=== PATIENT | female | born 1995 | race Caucasian/White ===

== ENCOUNTER 2017-12-20 15:36 | Emergency (ER) | payer OTHER ==
[~2017-12-20] VITALS: Ht 162.6 cm; Wt 53.1 kg
[~2017-12-20 15:36] MED LIST: FLNCV PO
[2017-12-20 15:38] VITALS: TEMP 36.6; Ht 162.6 cm; Wt 53.1 kg
--- NOTE | 2017-12-20 16:05 | DIAGNOSTIC IMAGING REPORT ---
L WRIST W/NAVICULAR MIN 3 VIEWS CLINICAL HISTORY: Left wrist pain extending into the forearm. COMPARISON: None. FINDINGS: Alignment of the left wrist is anatomic. No acute fracture is identified. Joint spaces are clear. No erosions are identified. IMPRESSION: No acute fracture or dislocation within the left wrist. Electronically signed by: Kevan Muller M.D. 12/20/2017 4:04 PM Dictated Date/Time: 12/20/2017 4:03 PM
--- NOTE | 2017-12-20 16:41 | DIAGNOSTIC IMAGING REPORT ---
L ELBOW MIN 3 VIEWS ROUTINE CLINICAL HISTORY: fall into door frame; wrist forearm and elbow pain COMPARISON: None FINDINGS: Alignment of the left elbow is anatomic. There is no fracture or joint effusion. No osseous lesion is identified. IMPRESSION: No acute fracture or joint effusion of the left elbow. Electronically signed by: Kevan Muller M.D. 12/20/2017 4:40 PM Dictated Date/Time: 12/20/2017 4:39 PM
[2017-12-20 17:15] VITALS: BP 113/72; PULSE 99; O2SAT 100
--- NOTE | 2017-12-22 06:07 | EMERGENCY ROOM VISIT NOTE ---
ED Visit Note First contact with patient: 15:54 Chief Complaint: I hurt my left arm. History of Present Illness: Ms. Torres is a 22-year-old white female who ambulates into the accompanied by a female friend complaining of left lower arm pain. Patient reports yesterday she tripped while wearing flip-flops and struck her left forearm on a door frame. Since that time she reports that she is having pain over the left forearm that extends into the wrist and elbow. She describes her pain as sharp and shooting. At rest she rates her discomfort 2/ 10 with any movements of the wrist, elbow and forearm her pain escalates to 8/ 10. She denies true radiation of pain. As previously noted all movements of the wrist, forearm and elbow increases her discomfort, palpation increases her discomfort. She has not identified any alleviating factors related to the pain. She reports she has been using [id number] ibuprofen without relief of her discomfort. Associated with her pain she reports she has a mild tingling sensations in the little and ring fingers. She denies any previous significant injuries to the forearm, wrist or elbow or surgeries. Review of Systems: As noted above in history of present illness. Past Medical History: Patient denies. Current Medications: Patient denies. Allergies to Medications: Penicillin. Social History: Patient is currently employed; she feels safe in her home environment; she admits to tobacco use and denies alcohol use. Physical Examination: Vital Signs: Date Time Temp Pulse Resp B/P (MAP) Pulse Ox O2 Delivery O2 Flow Rate FiO2 12/20/17 17:15 99 18 113/72 100 12/20/17 15:38 36.6 118 18 131/86 99 Room Air GENERAL: 22-year-old female in mild to moderate distress due to pain, nontoxic- appearing, afebrile and hemodynamically stable. NEUROLOGICAL: Awake, alert and oriented to person, place and time. Answering questions appropriately and following commands. SKIN: Warm, dry and pink. No open soft tissue trauma noted. LEFT UPPER EXTREMITY: No gross bony deformities. No tenderness throughout the shoulder or humerus. Moderate tenderness over the proximal radius and ulna at the level of the elbow. Minimal tenderness over the olecranon process. In this area do not appreciate any bony deformity or crepitus. There is moderate tenderness over the middle aspect of the medial and posterior forearm. There is a large contusion in this area. There is questionable deformity of the ulna but no appreciable crepitus. Additionally there is tenderness diffusely throughout the carpals. I do not appreciate any bony deformity or crepitus. No specific tenderness in the anatomical snuffbox. No tenderness throughout the hands or fingers. She refuses to do all range of motion in the elbow, forearm and wrist due to pain. Throughout the hand the skin was warm and pink and capillary refill was brisk. She was able to distinguish light sensations to all dermatomes of the hand. ED Course: Patient is assessed as noted above. Patient's medication list was reviewed. Patient was offered pain medication and refused and was given ice pack for pain and comfort. Left Elbow X-Rays: Were read by myself and the radiologist no acute fractures or dislocations. No joint effusions. No elevation of the fat pads. Left Wrist with Navicular X-Rays: Should be noted this x-ray had slight extension into the middle aspect of the forearm which overlapped the elbow x- ray. Was read by myself and the radiologist showing no acute fractures or dislocations. Patient was placed in a wrist lacer splint and sling. Patient was educated about today's findings and instructed on her treatment plan ; she verbalized understanding and agreement with this plan. Clinical Impression: Left forearm contusion. Disposition: Patient discharged to home in stable condition accompanied by her mother; prior to departure she was reassessed and subjectively reported she was feeling slightly worse and rated her discomfort 5/10. Plan: Patient was encouraged to alternate ibuprofen and acetaminophen every 3 hours as needed for pain, use ice for pain and swelling and use splint and sling until pain-free. Patient was signed off of work for 3 days. Patient was encouraged to follow-up with her PCP for recheck in 4-5 days if no better for possible referral to orthopedics. Patient was encouraged return the ED for worsening/uncontrolled pain, uncontrolled swelling, worsening numbness/tingling of the hand or any new/ concerning symptoms.
== END 2017-12-20 17:00 | disposition home or self-care (01) ==
LOC: C.EDB 15:37 → C.EDD 17:00
DX: S50.12XA Contusion of left forearm, initial encounter (principal); W18.40XA Slipping, tripping and stumbling without falling, unspecified, initial encounter; Z88.0 Allergy status to penicillin; Z72.0 Tobacco use

== ENCOUNTER 2025-01-27 13:25 | Inpatient (IN) ==
[2025-01-27] MEDS ORDERED: LIDOCAINE 1% LOCAL 20 ML VIAL INFIL PRN (14:24)
[2025-01-27] MEDS ORDERED: OXYTOCIN 30 UNITS/NSS 30 UNITS/500 ML BAG IV PRN (14:24)
[2025-01-27 15:06] LABS: Hematocrit (blood only) 36.5 % (37.0-47.0); Hemoglobin 12.5 g/dl (12.0-16.0); Mean Corpuscular Hemoglobin 30.5 pg (25.0-34.0); Mean Corpuscular Volume 89.0 fL (80.0-100.0); Platelet Count 251 K/uL (130-400); RDW Standard Deviation 43.5 fL (36.4-46.3); Red Blood Count 4.10 M/uL (4.20-5.40); White Blood Count 11.83 K/ul (4.8-10.8)
[2025-01-27] MEDS: OXYTOCIN 30 UNITS/NSS 30 UNITS/500 ML BAG IV PRN (15:27)
--- NOTE | 2025-01-27 16:00 | History & Physical Report ---
Date of Service January 27, 2025 Assessment & Plan (1) Encounter for induction of labor: (2) IUGR (intrauterine growth restriction) affecting care of mother: (3) Gestational diabetes mellitus (GDM) affecting , antepartum: (4) Carrier of group B Streptococcus: (5) Tobacco smoking affecting : Plan This is a 29 y/o at 38w 2d with an SUSAN 02/08/25 determined by ultrasound who is here for induction of labor. Her was complicated by IUGR at 35wks, GDM, daily tobacco use and GBS(+). Pitocin ordered Mora bulb placed GBS(+) - ancef ordered Continue to discuss tobacco cessation Rubella non-immune - MMR vaccine recommended after delivery IV fluids AROM whe indicated epidural available at patient request continue FHT, category I anticipate Admission and Anticipated Discharge Date Admission Date: January 27, 2025 History of Present Illness Chief Complaint: induction of labor Primary Care Provider: NO PCP Kaitlynn Pepe Torres is a 29 y/o at 38w 2d with an SUSAN 02/08/25 determined by ultrasound who is here for induction of labor. Her was complicated by IUGR at 35wks, GDM, daily tobacco use and GBS(+). Has been following with her OB regularly. Category I tracing; moderate FHT variability. OB Labs: Blood Type O Positive 07/25/24 Antibody Screen NEGATIVE 07/25/24 Hgb 12.1 g/dl (12.0-16.0) 11/16/24 Hct 36.7 % (37.0-47.0) L 11/16/24 MCV 88.0 fL (80.0-100.0) 08/05/24 Plt Count 261 K/uL (130-400) 08/05/24 Rubella IgG Antibody Non Immune (Immune) L 07/25/24 Treponema pallidum Ab Negative (Negative) 11/16/24 Hep Bs Antigen Negative (Negative) 07/25/24 Hepatitis C Antibody Negative (Negative) 07/25/24 HIV 1&2 Ab/P24 Ag 4thGn Negative (Negative) 07/25/24 Glucose 1 Hr 50 gm 134 mg/dl (70-130) H 11/16/24 OB Optional Labs: Chlamydia trachomatis RNA Not Detected (NotDetected) 07/25/24 Neisseria gonorrhoeae RNA Not Detected (NotDetected) 07/25/24 Review of Systems Denies fever, chills, sweats Denies shortness of breath, difficulty breathing, chest pain, palpitations, chest pressure. Denies breast pain. Denies dysuria. Denies headache or changes in vision. and Delivery Plans IUGR-at 35wks AC 9% *Twice weekly NST/DVP@Dx *Weeklyl doppler@Dx *Growth US Q4wk @Dx *Deliver [id number] (unless abnml flow) 01/27/25 *Deliver 37wks (less than 3rd%) GDM *Begin monthly Growth US's @24wks Current Every Day Smoker - 1-2 cigarettes per day - Discussed cessation Rubella Non Immune *Recommend PPX MMR Hepatitis B Non Immune *Recommend Hepatitis B Vaccine ASCUS Pap/ HPV + @ NOB Visit. *Recommend Colpo-Scheduled 09/02/24 * FORREST, rec pap /colpo pp (akh) GBS Positive in Urine *Treat in labor Allergies Allergy/AdvReac Type Severity Reaction Status Date / Time Penicillins Allergy Intermediate yeast Verified 01/27/25 15:47 infection amoxicillin Allergy Rash Verified 01/27/25 15:47 Home Medications Medication Instructions Recorded Confirmed Type 21-iron fu-folic acid PO 11/16/24 01/26/25 History [ Complete] acetone (urine) test (Ketone Urine #50 ea 12/09/24 01/26/25 Rx Test strips) blood sugar diagnostic (Accu-Chek #150 ea 12/09/24 01/26/25 Rx Guide test strips) blood-glucose meter (Accu-Chek #1 ea 12/09/24 01/26/25 Rx Guide Glucose Meter) lancets (Accu-Chek Softclix #150 ea 12/09/24 01/26/25 Rx Lancets) Patient History Medical History (Updated 01/27/25 @ 15:54 by Imelda Carbajal DO) Varicella vaccination Endometriosis Surgical History No history of previous surgery Family History Aunt Breast cancer Ovarian cancer Grandmother (Maternal) Myocardial infarction Grandfather (Maternal) Skin cancer Denies family history of Colorectal cancer Social History (Updated 07/20/24 @ 15:30 by Kelsey Siu) Smoking Status: Current every day smoker Tobacco Type: Cigarettes Cigarettes Per Day: 2; Do You Dip or Chew Tobacco: No; Hx Alcohol Use: No Hx Substance Use: No Preferred Language: [place] Zealander Communication Ability: Effective Electronic Prepress System Operator Required: No Beliefs That Will Affect Care: None marital status: Single marital status details: maikel Miguel (46) [phone] Current Living Situation: Significant Other Current Living Situation Comment: lives with mom, son, dogs, cat-mom changing litter current occupational status: employed current occupation: [employer] Other Information That Helps Us Care for You: No Feels Safe at Home: Yes Safety Concerns: Feels Safe At This Time Physical Exam Physical Exam: General: Alert, oriented. No acute distress. Cardiac: Regular rate and rhythm, no murmurs/rubs/gallops. Respiratory: Clear to auscultation bilaterally a/p, no wheezes/rales/rhonchi. No increased work of breathing. Symmetrical chest rise. No respiratory distress. Abdomen: soft, gravid, normal to inspection Pelvic: Dilation 1.5 cm; Effacement 50; Station -[address] Varghese Lower Extremities: No lower extremity edema or swelling. No deep calf pain. Results & Data Vital Signs (Past 12 Hours) Vital Signs Temp Pulse Resp BP 01/27/25 15:21 63 01/27/25 15:21 121/81 01/27/25 13:37 36.7 C 20 01/27/25 13:35 80 127/83 Supervising Physician Co-Signing Physician Notes Resident Physician Supervision Note: I interviewed and examined the patient. Discussed with Dr. Carbajal and agree with findings and plan as documented in the note. Any exceptions or clarifications are listed here: 29 yo at 38 2/7 wga prsents for IOL for fgr. PNI as above. SVE 1.5/50/-2, fetus cat 1. EFW 6-7. 35cc mora bulb placed after verbal informed consent obtained, tolerated well. Will start pit. ancef for gbs+ status due to pcn allergy, tolerated keflex in the past. Epidural prn Documented By: Eveline Varghese MD
[2025-01-27] MEDS: LACTATED RINGER'S 1,000 ML IV PRN (17:00)
[2025-01-27] MEDS ORDERED: LIDOCAINE 2% MPF LOCAL 5 ML VIAL EPI PRN (17:39)
[2025-01-27] MEDS ORDERED: BUPIVACAINE 0.25% PF 30 ML VIAL EPI PRN (17:39)
[2025-01-27] MEDS ORDERED: NALOXONE HCL 0.4 MG/1 ML VIAL/CARP IV PRN (17:39)
[2025-01-27] MEDS ORDERED: NALOXONE HCL 1 MG in SODIUM CHLORIDE 0.9% 1,000 ML IV PRN (17:39)
[2025-01-27] MEDS ORDERED: SODIUM CHLORIDE 0.9% PF INJ 10 ML VIAL EPI PRN (17:39)
[2025-01-27] MEDS ORDERED: ROPIVACAINE 0.5% PF 5 MG/ML 20 ML VIAL EPI PRN (17:39)
[2025-01-27] MEDS ORDERED: diphenhydrAMINE 50 MG/ML VIAL IV PRN (17:39)
[2025-01-27] MEDS ORDERED: NALBUPHINE HCL INJ 10 MG/ML AMP IV PRN (17:39)
[2025-01-27] MEDS ORDERED: ONDANSETRON INJ 2 MG/ML 2 ML VIAL IV PRN (17:39)
--- NOTE | 2025-01-27 17:40 | Anesthesiology Consultation ---
Date of Service January 27, 2025 Assessment & Plan (1) Encounter for pre-operative examination: Chart Review Chart Review: Patient NOT seen in Pre Admission Testing and Acceptable Risk for Labor Epidural Consults Requested none History Height/Weight Height: 5 ft 5 in Weight: 61.235 kg Allergies Allergy/AdvReac Type Severity Reaction Status Date / Time Penicillins Allergy Intermediate yeast Verified 01/27/25 15:47 infection amoxicillin Allergy Rash Verified 01/27/25 15:47 Medications Home Medications Medication Instructions Recorded Confirmed Last Taken 21-iron fu-folic acid PO 11/16/24 01/26/25 01/26/25 14:00 [ Complete] acetone (urine) test (Ketone Urine #50 ea 12/09/24 01/26/25 Unknown Test strips) blood sugar diagnostic (Accu-Chek #150 ea 12/09/24 01/26/25 Unknown Guide test strips) blood-glucose meter (Accu-Chek #1 ea 12/09/24 01/26/25 Unknown Guide Glucose Meter) lancets (Accu-Chek Softclix #150 ea 12/09/24 01/26/25 Unknown Lancets) Active Medications Generic Name Dose Route Start Last Admin Trade Name Freq PRN Reason Stop Dose Admin Lactated Ringer's 1,000 mls @ 125 mls/hr 01/27/25 14:24 01/27/25 17:30 Lr IV 01/29/25 14:23 999 mls/hr .Q8H PRN Infusion L&D Protocol Protocol Oxytocin 30 units in 500 mls @ 8 mls/hr 01/27/25 15:23 01/27/25 17:00 Pitocin 30 Units/Nss IV 01/29/25 15:22 0.48 units/hr .Q24H PRN 8 mls/hr Labor Induction/Augmentation Titration Protocol 0.48 UNITS/HR Past Medical History Medical History (Updated 01/27/25 @ 17:40 by Cisco Mims MD) Encounter for pre-operative examination Varicella vaccination Endometriosis Exercise / Class Metabolic Activity II 4-5 Yardwork/Stairs/Walk up hill Past Family History Family History Aunt Breast cancer Ovarian cancer Grandmother (Maternal) Myocardial infarction Grandfather (Maternal) Skin cancer Denies family history of Colorectal cancer Past Surgical History Surgical History No history of previous surgery Past Anesthesia History No Hx of Anesthesia Complications and No Family Hx of Anesthesia Complications Social History Smoking Status: Current every day smoker Smoking cigarettes per day: 2 Do You Dip or Chew Tobacco: No Hx Alcohol Use: No Hx Substance Use: No Physical Exam Vital Signs Last Vital Signs Temp 36.7 C 01/27/25 13:37 Pulse 62 01/27/25 18:03 Resp 18 01/27/25 17:30 BP 130/83 01/27/25 18:03 Pulse Ox 100 01/27/25 18:02 Testing Laboratory Results 01/27/25 14:48 01/27/25 14:47 POC Glucose 97
[2025-01-27] MEDS: fentANYL 2 MCG/ML BUPIVacaine 0.125%-NSS 100ML BAG EPI PRN (18:03)
[2025-01-27] MEDS: BUPIVACAINE 0.25% PF 30 ML VIAL EPI STA (18:03)
[2025-01-27] MEDS: LIDOCAINE 2%/EPINEPHRINE 1:200,000 20 ML PF EPI STA (18:03)
[2025-01-27] MEDS: LIDOCAINE 2%/EPINEPHRINE 1:200,000 20 ML PF ONE (18:20)
[2025-01-27] MEDS: SODIUM CHLORIDE 0.9% PF INJ 10 ML VIAL ONE (18:20)
[2025-01-27] MEDS: fentANYL 2 MCG/ML BUPIVacaine 0.125%-NSS 100ML BAG ONE (18:20)
[2025-01-27] MEDS: BUPIVACAINE 0.25% PF 30 ML VIAL ONE (18:20)
[2025-01-27] MEDS: SODIUM CHLORIDE 0.9% PF INJ 10 ML VIAL EPI STA (18:51)
--- NOTE | 2025-01-27 19:59 | Labor Progress Brief Note ---
Date of Service January 27, 2025 Subjective comfortable w/ epidural, bulb fell out beforehand Assessment & Plan (1) Encounter for induction of labor: (2) IUGR (intrauterine growth restriction) affecting care of mother: (3) Gestational diabetes mellitus (GDM) affecting , antepartum: (4) Carrier of group B Streptococcus: Plan 29 yo at 38 2/7 wga presents for IOL for FGR VSS Fetus cat 1 Labor - pit at 10, discussed arom and pt agreeable, tolerated well. Continue induction BG - q4 GBS+, ancef ordered epidural in place Admission and Anticipated Discharge Date Admission Date: January 27, 2025 Physical Exam Genitourinary: Manual OB Exam: + cervical dilation 4 cm, + cervical effacement 50%, + station -2 and + amniotic fluid (arom clear) OB Exam Monitor Tracing: + external FHT monitor used, + external uterine monitor used (q3) and + category I (145/mod/+accel/-decel) Results & Data Vital Signs (Past 12 Hours) Vital Signs Temp Pulse Resp BP Pulse Ox Pulse Ox O2 Del Method 01/27/25 19:52 100 01/27/25 19:52 70 01/27/25 19:47 100 01/27/25 19:47 65 01/27/25 19:46 62 01/27/25 19:46 113/76 01/27/25 19:42 100 01/27/25 19:42 69 01/27/25 19:37 100 01/27/25 19:37 66 01/27/25 19:32 100 01/27/25 19:32 72 01/27/25 19:31 73 01/27/25 19:31 110/78 01/27/25 19:27 99 01/27/25 19:27 70 01/27/25 19:22 99 01/27/25 19:22 64 01/27/25 19:17 99 01/27/25 19:17 64 01/27/25 19:16 100 01/27/25 19:16 69 01/27/25 19:16 115/67 01/27/25 19:12 100 01/27/25 19:12 67 01/27/25 19:07 100 01/27/25 19:07 66 01/27/25 19:02 100 01/27/25 19:02 61 01/27/25 19:01 67 01/27/25 19:01 124/81 01/27/25 19:00 Room Air 01/27/25 19:00 18 01/27/25 19:00 97.5 F L 18 01/27/25 19:00 18 01/27/25 19:00 18 01/27/25 18:57 100 01/27/25 18:57 64 01/27/25 18:52 100 01/27/25 18:52 64 01/27/25 18:47 100 01/27/25 18:47 66 01/27/25 18:45 58 L 01/27/25 18:45 117/73 01/27/25 18:44 71 01/27/25 18:44 124/77 01/27/25 18:42 100 01/27/25 18:42 64 01/27/25 18:38 65 01/27/25 18:38 112/76 01/27/25 18:37 100 01/27/25 18:37 64 01/27/25 18:34 66 01/27/25 18:34 109/73 01/27/25 18:32 99 01/27/25 18:32 66 01/27/25 18:30 20 01/27/25 18:30 20 01/27/25 18:29 65 01/27/25 18:29 105/65 01/27/25 18:27 100 01/27/25 18:27 67 01/27/25 18:25 16 01/27/25 18:25 16 01/27/25 18:23 64 01/27/25 18:23 119/78 01/27/25 18:22 100 01/27/25 18:22 68 01/27/25 18:21 65 01/27/25 18:21 120/76 01/27/25 18:20 20 01/27/25 18:20 20 01/27/25 18:19 64 01/27/25 18:19 115/71 01/27/25 18:17 99 01/27/25 18:17 69 01/27/25 18:17 70 01/27/25 18:17 119/69 01/27/25 18:15 18 01/27/25 18:15 18 01/27/25 18:15 73 01/27/25 18:15 124/80 01/27/25 18:13 66 01/27/25 18:13 122/86 01/27/25 18:12 100 01/27/25 18:12 70 01/27/25 18:11 66 01/27/25 18:11 120/90 01/27/25 18:09 72 01/27/25 18:09 120/82 01/27/25 18:07 100 01/27/25 18:07 73 01/27/25 18:07 68 01/27/25 18:07 118/77 01/27/25 18:05 20 01/27/25 18:05 20 01/27/25 18:05 69 01/27/25 18:05 118/77 01/27/25 18:03 62 01/27/25 18:03 130/83 01/27/25 18:02 100 01/27/25 18:02 68 01/27/25 18:01 20 01/27/25 18:01 20 01/27/25 18:01 71 01/27/25 18:01 129/85 01/27/25 17:57 100 01/27/25 17:57 73 01/27/25 17:52 100 01/27/25 17:52 71 01/27/25 17:47 100 01/27/25 17:47 70 01/27/25 17:30 18 01/27/25 17:30 18 01/27/25 17:01 70 01/27/25 17:01 127/86 01/27/25 15:58 68 01/27/25 15:58 115/83 01/27/25 15:21 63 01/27/25 15:21 121/81 01/27/25 13:37 98.1 F 20 01/27/25 13:35 80 127/83 O2 Del Method 01/27/25 19:52 01/27/25 19:52 01/27/25 19:47 01/27/25 19:47 01/27/25 19:46 01/27/25 19:46 01/27/25 19:42 01/27/25 19:42 01/27/25 19:37 01/27/25 19:37 01/27/25 19:32 01/27/25 19:32 01/27/25 19:31 01/27/25 19:31 01/27/25 19:27 01/27/25 19:27 01/27/25 19:22 01/27/25 19:22 01/27/25 19:17 01/27/25 19:17 01/27/25 19:16 Room Air 01/27/25 19:16 01/27/25 19:16 01/27/25 19:12 01/27/25 19:12 01/27/25 19:07 01/27/25 19:07 01/27/25 19:02 01/27/25 19:02 01/27/25 19:01 01/27/25 19:01 01/27/25 19:00 01/27/25 19:00 01/27/25 19:00 01/27/25 19:00 01/27/25 19:00 01/27/25 18:57 01/27/25 18:57 01/27/25 18:52 01/27/25 18:52 01/27/25 18:47 01/27/25 18:47 01/27/25 18:45 01/27/25 18:45 01/27/25 18:44 01/27/25 18:44 01/27/25 18:42 01/27/25 18:42 01/27/25 18:38 01/27/25 18:38 01/27/25 18:37 01/27/25 18:37 01/27/25 18:34 01/27/25 18:34 01/27/25 18:32 01/27/25 18:32 01/27/25 18:30 01/27/25 18:30 01/27/25 18:29 01/27/25 18:29 01/27/25 18:27 01/27/25 18:27 01/27/25 18:25 01/27/25 18:25 01/27/25 18:23 01/27/25 18:23 01/27/25 18:22 01/27/25 18:22 01/27/25 18:21 01/27/25 18:21 01/27/25 18:20 01/27/25 18:20 01/27/25 18:19 01/27/25 18:19 01/27/25 18:17 01/27/25 18:17 01/27/25 18:17 01/27/25 18:17 01/27/25 18:15 01/27/25 18:15 01/27/25 18:15 01/27/25 18:15 01/27/25 18:13 01/27/25 18:13 01/27/25 18:12 01/27/25 18:12 01/27/25 18:11 01/27/25 18:11 01/27/25 18:09 01/27/25 18:09 01/27/25 18:07 01/27/25 18:07 01/27/25 18:07 01/27/25 18:07 01/27/25 18:05 01/27/25 18:05 01/27/25 18:05 01/27/25 18:05 01/27/25 18:03 01/27/25 18:03 01/27/25 18:02 01/27/25 18:02 01/27/25 18:01 01/27/25 18:01 01/27/25 18:01 01/27/25 18:01 01/27/25 17:57 01/27/25 17:57 01/27/25 17:52 01/27/25 17:52 01/27/25 17:47 01/27/25 17:47 01/27/25 17:30 01/27/25 17:30 01/27/25 17:01 01/27/25 17:01 01/27/25 15:58 01/27/25 15:58 01/27/25 15:21 01/27/25 15:21 01/27/25 13:37 01/27/25 13:35 Coding Level of Care Code None Diagnoses Encounter for induction of labor Z34.90 IUGR (intrauterine growth restriction) affecting care of mother O36.5990 Gestational diabetes mellitus (GDM) affecting , antepartum O24.419 Carrier of group B Streptococcus Z22.330
--- NOTE | 2025-01-28 01:36 | Delivery Summary ---
Vaginal Delivery Summary Date of Service January 28, 2025 Vaginal Delivery Summary [facility] PREOPERATIVE DIAGNOSIS: 1. Single intrauterine at 38 3/7 2. growth restriction 3. A1GDM 4. GBS+ POSTOPERATIVE DIAGNOSIS: 1. Single intrauterine at 38 3/7 2. growth restriction 3. A1GDM 4. GBS+ 5. Delivered PROCEDURE: 1. Normal spontaneous vaginal delivery. SURGEON: Eveline Varghese MD ANESTHESIA: Epidural. QUANTITATIVE BLOOD LOSS: 55 mL FLUIDS: Continuous LR. URINE OUTPUT: 200ml by straight catheter after delivery COMPLICATIONS: None. CONDITION: Stable. INDICATIONS: 29 yo at 38 3/7 wga presented for IOL for growth restriction. Ancef was started for GBS+ status. Induction was begun with mora bulb and pitocin. Following bulb expulsion, she received an epidural for pain control. She underwent arom and progressed to complete and desired to push FINDINGS: A viable female , weight pending with Apgars of 8 and 9 at 1 and 5 minutes respectively. SPECIMEN: Cord blood OPERATIVE REPORT: The patient progressed to 10 cm, 100% effaced and +2 station, pushed over intact perineum with anesthesia to deliver a viable female , weight and Apgars as above. Head of delivered in SAURABH position. Loose nuchal cord noted but patient delivered through. Body and shoulders were delivered without difficulty. was delivered to maternal abdomen and nursing staff. Delayed cord clamping was performed for 60 seconds. Cord was clamped and cut. Cord blood was obtained. Placenta delivered spontaneously intact with 3-vessel cord. IV oxytocin and fundal massage were given for excellent hemostasis. Vagina, cervix, perineum, and placenta were inspected. Vaginal laceration was repaired using 3-0 vicryl in the usual fashion, there was excellent hemostasis. Sponge and needle counts correct x2. No sponges were left behind. Mother and stable in immediate period. [facility] Vaginal Delivery Charge Vaginal Delivery Codes: 65783 global code for the antepartum, delivery, and post- Delivery Type Details: [facility]
[2025-01-28] MEDS ORDERED: HYDROCORTISONE ACETATE 25 MG SUPP PR PRN (01:56)
[2025-01-28] MEDS ORDERED: OXYTOCIN 30 UNITS/NSS 30 UNITS/500 ML BAG IV PRN (01:56)
[2025-01-28] MEDS: DIPHTHER/TETAN/PERTUS Vaccine (Tdap, Adol/Adult) 0.5mL IM ONE (01:58)
[2025-01-28] MEDS: ACETAMINOPHEN 325 MG TAB PO PRN (03:55)
[2025-01-28] MEDS: IBUPROFEN 600 MG TAB PO PRN (03:55)
--- NOTE | 2025-01-28 06:59 | Anesthesia Procedure Note ---
Date of Service January 28, 2025 Anesthesia Post Epidural Note Vital Signs Vital Signs: Temp Pulse Resp BP Pulse Ox O2 Del Method 36.5 C 63 18 111/74 99 Room Air 01/28/25 03:30 01/28/25 03:30 01/28/25 03:30 01/28/25 03:30 01/28/25 03:30 01/28/25 03:30 Pain Intensity Abdomen: Pain Intensity: 2 Notes Mental Status: alert / awake / arousable and participated in evaluation Patient Amnestic to Procedure: No Nausea / Vomiting: adequately controlled Pain: adequately controlled Airway Patency, RR, SpO2: stable & adequate BP & HR: stable & adequate Hydration State: stable & adequate Neuraxial Anesthesia: was administered and sensory block resolved Anesthetic Complications: no major complications apparent and Pt Satisfied with anesthetic care Epidural: Removed without complications and With tip intact
[2025-01-28] MEDS: DOCUSATE SODIUM 100 MG CAP PO SCH (09:26)
[2025-01-28] MEDS: PRENATAL VITAMIN 1 TAB PO SCH (09:26)
[2025-01-28] MEDS: BENZOCAINE 20% SPRY 85 APPLN/85 GM CAN EXT PRN (12:50)
[2025-01-28 23:08] VITALS: RESP 18
[2025-01-29 07:42] VITALS: PULSE 62; TEMP 97.9; O2SAT 100
--- NOTE | 2025-01-29 08:37 | Obstetrical Progress Note ---
Date of Service January 29, 2025 Assessment & Plan (1) Encounter for induction of labor: day #2 meets discharge criteria wishes to go home no extremity pain minimal bleeding no significant depression anxiety patient will follow-up in the office Subjective Ambulation: ambulating normally Voiding: no voiding problems Passing Gas:: Yes Diet Tolerance:: regular diet Lochia:: Small Physical Exam Constitutional WD/WN, vitals as above well developed and well nourished Respiratory normal respiratory effort, lungs clear to auscultation normal respiratory effort Cardiovascular RRR, no murmur, no edema Gastrointestinal (Abdomen) normal bowel sounds, soft, nontender, no hepatosplenomegaly Results & Data Vital Signs (Past 12 Hours) Vital Signs Temp Pulse Resp BP Pulse Ox O2 Del Method 01/29/25 07:35 97.9 F 62 18 122/78 100 Room Air 01/28/25 23:07 98.2 F 59 L 18 123/81 99 Room Air
[2025-01-29 09:34] VITALS: BP 110/79
== END 2025-01-29 13:56 | disposition home or self-care (01) | DRG 807 ==
LOC: 4S1 13:25 → 4E2 01-28 03:53